=== PATIENT | male | born 1965 | race Caucasian/White ===

== ENCOUNTER 2017-03-14 00:19 | Observation (INO) | payer SELFPAY ==
[~2017-03-14] VITALS: Ht 170.2 cm; Wt 115.0 kg
[2017-03-14] VITALS (10 sets, daily range): BP systolic 126–185; BP diastolic 72–111; PULSE 55–70; RESP 14–22; TEMP 96.9–98.7; O2SAT 98–100
[~2017-03-14 00:19] MED LIST: ALBU6.7H INH; MEDR4PAK3 PO; PHEN12.5 PO; SULF-154 PO; Z.0.NO CURRENT MEDS
[2017-03-14] MEDS ORDERED: IOHEXOL 350 MG/ML 10 ML VIAL (for RAD DIAG) IVCONTRAST ONE (00:20)
[2017-03-14] MEDS ORDERED: NITROGLYCERIN 0.4 MG SL 25 TABS/BTL SL ONE (00:45)
[2017-03-14] MEDS ORDERED: ASPIRIN 81 MG CHEW TAB PO ONE (00:45)
[2017-03-14] MEDS ORDERED: SODIUM CHLORID 0.9% 500 ML INJ 500 ML IV ONE (00:45)
[2017-03-14] MEDS ORDERED: SODIUM CHLORIDE 0.9% FLUSH 10 ML FLUSH IVF PRN (00:45)
[2017-03-14] MEDS ORDERED: ONDANSETRON HCL 4 MG/2 ML VIAL IV ONE (00:45)
--- NOTE | 2017-03-14 01:01 | PD ---
HPI Chief Complaint: Chest Pain Time Seen by Provider: 00:24 Travel History International Travel<30 days: No Contact w/Intl Traveler<30days: No Traveled to known affect area: No History of Present Illness HPI The patient is a 51 year old male who presents to the [facility] emergency department with a history of reported chest pain that he states woke him from sound sleep at 10 PM. The patient reports that the pain also occurred Monday morning, however it resolved on its own. He reports that this time it is been persistent. He reports that he has had nausea and vomiting associated with it. He reports that he vomited 4 times. He reports that he last moved his bowels earlier this evening. He reports that he thought that this may help with his symptoms. He denies having any cough or congestion, fevers or chills. When asked to point to where the pain is the patient points to the midepigastric area and reports that it extends down into the area just above his umbilicus. He denies having any diarrhea. He reports that he has had problems with indigestion and heartburn recently. He denies any prior history of heart disease. He denies any prior history of DVT or PE. On review of systems otherwise, the patient denies having any neck pain, shortness of breath, urinary symptoms, or neurologic symptoms. [facility] Past Medical History Narrative Medical The patient's past medical history is significant for bronchitis. Respiratory: Yes (FREQUENT BRONCHITIS) Immunizations Current: No Social History Alcohol Use: Yes (RARELY) Tobacco Use: Yes (1/2 PPD) Substance Use: No Allergies-Medications (Allergen,Severity, Reaction): Coded Allergies: No Known Allergies (Verified Allergy, Unknown, 03/14/17) Reported Meds & Prescriptions Reported Meds & Active Scripts Active Reported Tums (Calcium Carbonate (Antacid)) 500 Mg Chew 500 Mg CHEW PRN Review of Systems Except as stated in HPI: all other systems reviewed are Neg General / Constitutional: No: Fever Eyes: No: Visual changes HENT: No: Headaches Cardiovascular: Positive: Chest Pain or Discomfort Respiratory: No: Shortness of Breath Gastrointestinal: Positive: Nausea, Vomiting, Abdominal Pain Genitourinary: No: Dysuria Musculoskeletal: No: Pain Skin: No Rash Neurologic: No: Weakness Psychiatric: No: Depression Endocrine: No: Polydipsia Hematologic/Lymphatic: No: Easy Bruising Physical Exam Narrative General: The patient is a well-developed well-nourished male, uncomfortable appearing on examination, holding his abdomen, laying on his right side. Head and Neck exam: Head is normocephalic atraumatic. Eyes: EOMI, pupils are equal round and reactive to light. Nose: Midline septum with pink mucous membranes Mouth: Dentition unremarkable. Moist mucus membranes. Posterior oropharynx is not erythematous. No tonsillar hypertrophy. Uvula midline. Airway patent. Neck: No palpable lymphadenopathy. No nuchal rigidity. No thyromegaly. Cardiovascular: Regular rate and rhythm without murmurs, gallops, or rubs. Lungs: Clear to auscultation bilaterally. No wheezes, rhonchi, or rales. Abdomen: Soft, tenderness on palpation of the midepigastric area and to a lesser extent the right upper quadrant of the abdomen. No other tenderness on palpation of the other quadrants of the abdomen. Negative Smith's sign. No tenderness on palpation of McBurney's point. Normal bowel sounds are audible. No guarding, rebound, or rigidity. Extremities: No clubbing, cyanosis, or edema. 2+ pulses in all 4 extremities. No calf tenderness on palpation. Back: No costovertebral angle tenderness to palpation. Neurologic Exam: Grossly nonfocal. Skin Exam: No rash noted. Intact skin that is warm and dry. Data Data Last Documented VS Vital Signs Date Time Temp Pulse Resp B/P (MAP) Pulse Ox O2 Delivery O2 Flow Rate FiO2 03/14/17 01:30 55 14 142/89 (106) 100 Room Air 03/14/17 00:20 97.8 Orders Orders Electrocardiogram (03/14/17 00:43) B-Type Natriuretic Peptide (03/14/17 00:43) Ckmb (Isoenzyme) Profile (03/14/17 00:43) Complete Blood Count With Diff (03/14/17 00:43) Comprehensive Metabolic Panel (03/14/17 00:43) D-Dimer (03/14/17 00:43) Magnesium (Mg) (03/14/17 00:43) Prothrombin Time / Inr (Pt) (03/14/17 00:43) Act Partial Throm Time (Ptt) (03/14/17 00:43) Troponin I (03/14/17 00:43) Lipase (03/14/17 00:43) Chest, Single Ap (03/14/17 00:43) Ecg Monitoring (03/14/17 00:43) Bilateral Bp Monitoring (03/14/17 00:43) Iv Access Insert/Monitor (03/14/17 00:43) Oximetry (03/14/17 00:43) Oxygen Administration (03/14/17 00:43) Aspirin Chew (Aspirin Chew) (03/14/17 00:45) Sodium Chloride 0.9% Flush (Ns Flush) (03/14/17 00:45) Nitroglycerin Sl (Nitrostat Sl) (03/14/17 00:45) Sodium Chlorid 0.9% 500 Ml Inj (Ns 500 M (03/14/17 00:45) Ondansetron Inj (Zofran Inj) (03/14/17 00:45) Pantoprazole Inj (Protonix Inj) (03/14/17 01:45) Ct Abd/Pel W Iv Contrast(Rout) (03/14/17 01:54) CKMB (03/14/17 00:40) CKMB% (03/14/17 00:40) Iohexol 350 Inj (Omnipaque 350 Inj) (03/14/17 00:20) Admit Order (Ed Use Only) (03/14/17 03:23) Diet Npo (03/14/17 Breakfast) Sodium Chlor 0.9% 1000 Ml Inj (Ns 1000 M (03/14/17 03:30) Piperacil-Tazo 3.375 Gm Premix (Zosyn 3. (03/14/17 03:30) Physician Name Changes (03/14/17 03:51) Consult Georgie Nfs (03/14/17 ) Place In Observation (03/14/17 ) Code Status (03/14/17 04:41) Vital Signs (Adult) Q4H (03/14/17 04:41) Activity Oob Ad Melanie (03/14/17 04:41) Intake + Output 06,14,22 (03/14/17 04:41) Sodium Chlor 0.9% 1000 Ml Inj (Ns 1000 M (03/14/17 04:41) Sodium Chloride 0.9% Flush (Ns Flush) (03/14/17 09:00) Sodium Chloride 0.9% Flush (Ns Flush) (03/14/17 04:45) Pantoprazole Inj (Protonix Inj) (03/14/17 09:00) Oxycodone-Acetamin 5-325 Mg (Percocet (03/14/17 04:45) Morphine Inj (Morphine Inj) (03/14/17 04:45) Scd / Morgan / Foot Pump (03/14/17 04:41) Labs Laboratory Tests Test 03/14/17 00:40 White Blood Count 18.6 TH/MM3 Red Blood Count 5.29 MIL/MM3 Hemoglobin 15.7 GM/DL Hematocrit 46.9 % Mean Corpuscular Volume 88.6 FL Mean Corpuscular Hemoglobin 29.6 PG Mean Corpuscular Hemoglobin Concent 33.4 % Red Cell Distribution Width 14.9 % Platelet Count 271 TH/MM3 Mean Platelet Volume 8.7 FL Neutrophils (%) (Auto) 58.1 % Lymphocytes (%) (Auto) 29.1 % Monocytes (%) (Auto) 9.8 % Eosinophils (%) (Auto) 2.3 % Basophils (%) (Auto) 0.7 % Neutrophils # (Auto) 10.8 TH/MM3 Lymphocytes # (Auto) 5.4 TH/MM3 Monocytes # (Auto) 1.8 TH/MM3 Eosinophils # (Auto) 0.4 TH/MM3 Basophils # (Auto) 0.1 TH/MM3 CBC Comment AUTO DIFF Differential Total Cells Counted 100 Neutrophils % (Manual) 60 % Band Neutrophils % 2 % Lymphocytes % 18 % Monocytes % 5 % Eosinophils % 2 % Basophils % 1 % Neutrophils # (Manual) 11.5 TH/MM3 Differential Comment FINAL DIFF MANUAL Atypical Lymphocytes 12 % Platelet Estimate NORMAL Platelet Morphology Comment NORMAL Red Cell Morphology Comment NORMAL Prothrombin Time 10.5 SEC Prothromb Time International Ratio 1.0 RATIO Activated Partial Thromboplast Time 23.9 SEC D-Dimer Quantitative (PE/DVT) 0.53 MG/L FEU Blood Urea Nitrogen 17 MG/DL Creatinine 1.09 MG/DL Random Glucose 117 MG/DL Total Protein 7.8 GM/DL Albumin 3.9 GM/DL Calcium Level 8.9 MG/DL Magnesium Level 2.1 MG/DL Alkaline Phosphatase 63 U/L Aspartate Amino Transf (AST/SGOT) 18 U/L Alanine Aminotransferase (ALT/SGPT) 30 U/L Total Bilirubin 0.2 MG/DL Sodium Level 141 MEQ/L Potassium Level 4.0 MEQ/L Chloride Level 106 MEQ/L Carbon Dioxide Level 26.5 MEQ/L Anion Gap 9 MEQ/L Estimat Glomerular Filtration Rate 72 ML/MIN Total Creatine Kinase 150 U/L Creatine Kinase MB 1.3 NG/ML Troponin I LESS THAN 0.02 NG/ML B-Type Natriuretic Peptide 3 PG/ML Lipase 151 U/L MDM Medical Decision Making Medical Screen Exam Complete: Yes Emergency Medical Condition: Yes Medical Record Reviewed: Yes Interpretation(s) Last Impressions Abdomen/Pelvis CT 03/14/17 0154 Signed Impressions: Service Date/Time: Tuesday, March 14, 2017 02:30 - CONCLUSION: 1. Thickening of the gallbladder wall concerning for possible cholecystitis. This should be correlated with clinical symptoms. Biliary ductal dilatation is not seen. 2. Scattered colonic diverticula. Abhi Garcia MD Chest X-Ray 03/14/17 0043 Signed Impressions: Service Date/Time: Tuesday, March 14, 2017 01:09 - CONCLUSION: No acute disease. Abhi Garcia MD Differential Diagnosis Biliary colic, versus acute cholecystitis, versus acute coronary syndrome, versus pancreatitis Narrative Course During the course of the patients emergency department visit, the patients history, examination, and differential diagnosis were reviewed with the patient. The patient was placed on a media monitor with oximetry and frequent blood pressure monitoring. The patient had IV access obtained and blood work sent for analysis. The patient was initially provided aspirin 324 mg by mouth 1, nitroglycerin sublingual times one without any improvement in the pain, normal saline a 500 mL bolus. The patient was given Protonix 40 mg IV. The patients laboratory studies were reviewed and remarkable for a white count of 18.6, hemoglobin 15.7, platelets 271 with 60 neutrophils, 2 bands, 18 lymphocytes. CMP is remarkable for glucose of 117, cardiac enzymes within normal limits, BNP 3, lipase 151, PT 10.5, PTT 23.9. Radiology studies were reviewed and remarkable for a chest x-ray that reveals no acute cardiopulmonary disease, CT scan of the abdomen and pelvis reveals thickening of the gallbladder wall concerning for possible cholecystitis. The patient was given Zosyn 3.375 g IV. Initially, I spoke to Dr. Gonzalez regarding this patient's case, she recommended that I discuss the patient's case with the general surgeon on-call as he may accept the patient for admission. I then spoke to Dr. Posada regarding the patient's case and he did agree to admit the patient. The patients results were discussed with the patient, including the plan of care. I explained that further testing and/ or monitoring is indicated based on the patients history, examination, and/ or laboratory findings. Therefore, I recommended admission for additional evaluation. The patient expressed understanding and was agreeable with this plan. The patient was admitted to the hospital in stable condition and sent to a bed under the care of the general surgeon's service. Physician Communication Physician Communication See above and ED course for physician communication Diagnosis Primary Impression: Acute cholecystitis Admitting Information Admitting Physician Requests: Admit Gina Archibald MD Mar 14, 2017 01:01
[2017-03-14 01:19] LABS: AUTOMATED NEUTROPHIL # 10.8 TH/MM3 (1.8-7.7); BASOPHIL # 0.1 TH/MM3 (0-0.2); BASOPHIL % 0.7 % (0.0-2.0); EOSINOPHIL # 0.4 TH/MM3 (0-0.4); EOSINOPHIL % 2.3 % (0.0-4.0); HEMATOCRIT 46.9 % (39.0-51.0); HEMOGLOBIN 15.7 GM/DL (13.0-17.0); LYMPH % 29.1 % (9.0-44.0); LYMPHOCYTE # 5.4 TH/MM3 (1.0-4.8); MEAN CELL VOLUME 88.6 FL (80.0-100.0); MEAN CORPUSCULAR HEMOGLOBIN 29.6 PG (27.0-34.0); MEAN CORPUSCULAR HGB CONC 33.4 % (32.0-36.0); MEAN PLATELET VOLUME 8.7 FL (7.0-11.0); MONO % 9.8 % (0.0-8.0); MONOCYTE # 1.8 TH/MM3 (0-0.9); NEUT % 58.1 % (16.0-70.0); PLATELET COUNT 271 TH/MM3 (150-450); RED BLOOD COUNT 5.29 MIL/MM3 (4.50-5.90); RED CELL DISTRIBUTION WIDTH 14.9 % (11.6-17.2); WHITE BLOOD COUNT 18.6 TH/MM3 (4.0-11.0)
--- NOTE | 2017-03-14 01:28 | RADRPT ---
EXAM DATE/TIME: 03/14/2017 01:09 [facility] COMPARISON: CHEST SINGLE AP, June 24, 2011, 15:33. INDICATIONS : Chest pain. MEDICAL HISTORY : None. SURGICAL HISTORY : None. ENCOUNTER: Initial ACUITY: 1 day PAIN SCORE: 6/10 LOCATION: Bilateral lower chest FINDINGS: A single view of the chest demonstrates the lungs to be symmetrically aerated without evidence of mas s, infiltrate or effusion. The cardiomediastinal contours are unremarkable. Osseous structures are intact. CONCLUSION: No acute disease. Abhi Garcia MD on March 14, 2017 at 1:26 Board Certified Radiologist. This report was verified electronically.
[2017-03-14 01:45] LABS: PROTHROMBIN TIME - PATIENT 10.5 SEC (9.8-11.6)
[2017-03-14] MEDS ORDERED: PANTOPRAZOLE SODIUM 40 MG VIAL IV PUSH ONE (01:45)
[2017-03-14 01:55] LABS: ALKALINE PHOSPHATASE 63 U/L (45-117); TOTAL BILIRUBIN ADULT 0.2 MG/DL (0.2-1.0); TOTAL PROTEIN 7.8 GM/DL (6.4-8.2); TROPONIN I LESS THAN 0.02 NG/ML (0.02-0.05)
[2017-03-14 01:57] LABS: ALBUMIN 3.9 GM/DL (3.4-5.0); ALT (GPT) 30 U/L (12-78); AST (GOT) 18 U/L (15-37); BICARBONATE 26.5 MEQ/L (21.0-32.0); BLOOD UREA NITROGEN 17 MG/DL (7-18); CALCIUM 8.9 MG/DL (8.5-10.1); CHLORIDE 106 MEQ/L (98-107); CREATININE 1.09 MG/DL (0.60-1.30); GLOMERULAR FILTRATION RATE 72 ML/MIN (>89); GLUCOSE,RANDOM 117 MG/DL (74-106); LIPASE 151 U/L (73-393); MAGNESIUM 2.1 MG/DL (1.5-2.5); SODIUM (NA) 141 MEQ/L (136-145)
[2017-03-14] MEDS ORDERED: TUMS500C CHEW (01:57)
[2017-03-14 02:01] LABS: D-DIMER 0.53 MG/L FEU (0.00-0.50)
[2017-03-14 02:31] LABS: ATYPICAL LYMPHOCYTES 12 % (0-0); BANDS 2 % (0-6); BASOPHILS 1 % (0-2); LYMPHOCYTES 18 % (9-44); MONOCYTES 5 % (0-8); NEUTROPHIL # MANUAL DIFF 11.5 TH/MM3 (1.8-7.7); POLYS (SEG NEUTROPHILS) 60 % (16-70)
--- NOTE | 2017-03-14 03:06 | RADRPT ---
EXAM DATE/TIME: 03/14/2017 02:30 [facility] COMPARISON: No previous studies available for comparison. INDICATIONS : Epigastric pain aeith nausea and vomiting. IV CONTRAST: 95 cc Omnipaque 350 (iohexol) IV ORAL CONTRAST: No oral contrast ingested. RADIATION DOSE: 25.60 CTDIvol (mGy) ; Patient body habitus MEDICAL HISTORY : None SURGICAL HISTORY : None. ENCOUNTER: Initial ACUITY: 1 day PAIN SCALE: 10/10 LOCATION: epigastric TECHNIQUE: Volumetric scanning of the abdomen and pelvis was performed. Using automated exposure control and ad justment of the mA and/or kV according to patient size, radiation dose was kept as low as reasonably achievable to obtain optimal diagnostic quality images. DICOM format image data is available electro nically for review and comparison. FINDINGS: LOWER LUNGS: The visualized lower lungs are clear. LIVER: Homogeneous density without lesion. There is no dilation of the biliary tree. The gallbladder is thi ckened and somewhat ill-defined. Calcified gallstones are not seen. SPLEEN: Normal size without lesion. PANCREAS: Within normal limits. KIDNEYS: Normal in size and shape. There is no mass, stone or hydronephrosis. ADRENAL GLANDS: Within normal limits. VASCULAR: There is no aortic aneurysm. BOWEL/MESENTERY: There are scattered colonic diverticula. ABDOMINAL WALL: Within normal limits. RETROPERITONEUM: There is no lymphadenopathy. BLADDER: No wall thickening or mass. REPRODUCTIVE: Within normal limits. INGUINAL: There is no lymphadenopathy or hernia. MUSCULOSKELETAL: Within normal limits for patient age. CONCLUSION: 1. Thickening of the gallbladder wall concerning for possible cholecystitis. This should be correlate d with clinical symptoms. Biliary ductal dilatation is not seen. 2. Scattered colonic diverticula. Abhi Garcia MD on March 14, 2017 at 3:00 Board Certified Radiologist. This report was verified electronically.
[2017-03-14] MEDS ORDERED: SODIUM CHLOR 0.9% 1000 ML INJ 1,000 ML IV ONE (03:30)
[2017-03-14] MEDS ORDERED: PIPERACIL-TAZO 3.375 GM PREMIX 50 ML IV ONE (03:30)
[2017-03-14] MEDS ORDERED: SODIUM CHLORIDE 0.9% FLUSH 10 ML FLUSH IV FLUSH PRN (04:45)
[2017-03-14] MEDS: SODIUM CHLOR 0.9% 1000 ML INJ 1,000 ML IV SCH ×2 (05:21→16:00)
[2017-03-14] MEDS ORDERED: ACETAMINOPHEN 1000 MG/100 ML 100 ML IV ONE (07:14)
--- NOTE | 2017-03-14 08:11 | HHI.PR ---
Immediate Post Op Note Procedure Date: Mar 14, 2017 Pre Op Diagnosis: acute cholecystitis, with cholelithiasis Post Op Diagnosis: same Surgeon: Alex Posada MD Kiln Car Repairer(s): see or sheet Procedure: lap felicitas Findings: distended gallbladder, inflamed, multiple large stones Complications: none Specimen(s) removed: gallbladder Estimated blood loss: 5cc Anesthesia: General Drains: None Patient to: PACU Patient Condition: Good Alex Posada MD Mar 14, 2017 08:11
[2017-03-14] MEDS ORDERED: SODIUM CHLORID 0.9% 500 ML IV PRN (08:15)
[2017-03-14] MEDS ORDERED: POVIDONE IODINE 5% (ANTISEPSIS KIT) 4 APPLICATIONS EACH NARE PRN (08:15)
[2017-03-14] MEDS ORDERED: LACTATED RINGER'S 1000 ML IV PRN (08:15)
[2017-03-14] MEDS ORDERED: METOPROLOL TARTRATE 25 MG TAB PO PRN (08:15)
[2017-03-14] MEDS ORDERED: CHLORHEXIDINE GLUCONATE 2 % 1 PACK (2 CLOTHS) TOPICAL PRN (08:15)
[2017-03-14] MEDS ORDERED: DO NOT ADM ANY ANTICOAGULANT DRUGS PRN (09:36)
[2017-03-14] MEDS: PANTOPRAZOLE SODIUM 40 MG VIAL IV PUSH SCH (10:02)
[2017-03-14] MEDS ORDERED: *morphine SULFATE 4 MG/ML PERIprocedure ONLY ONE ×3 (10:12→10:44)
[2017-03-14] MEDS ORDERED: GLYCOPYRROLATE 1 MG/5 ML SYRINGE IV PUSH ONE (12:00)
[2017-03-14] MEDS ORDERED: ONDANSETRON HCL 4 MG/2 ML VIAL IV PUSH ONE (12:00)
[2017-03-14] MEDS ORDERED: PHENYLEPH/NS 1000 MCG/10 ML SYR IV ONE (12:00)
[2017-03-14] MEDS ORDERED: NEOSTIGMINE 5 MG/5 ML SYRINGE IV PUSH ONE (12:00)
[2017-03-14] MEDS ORDERED: PROPOFOL 200 MG/20 ML AMP IV ONE (12:00)
[2017-03-14] MEDS ORDERED: ROCURONIUM INJ 50 MG/5 ML SYRINGE IV PUSH ONE (12:00)
[2017-03-14] MEDS ORDERED: LIDOCAINE HCL 1% PF 5 ML SYRINGE OTHER ONE (12:00)
[2017-03-14] MEDS: PIPERACIL-TAZO 3.375 GM PREMIX 50 ML IV SCH ×2 (12:32→21:17)
--- NOTE | 2017-03-14 14:39 | EKG ---
Date Performed: 03/14/2017 Time Performed: 00:27:08 PTAGE: 51 years EKG: Sinus rhythm INCOMPLETE RIGHT BUNDLE BRANCH BLOCK BORDERLINE ECG Compared to PREVIOUS TRACING sinus tachycardia has resolved PREVIOUS TRACIN06/24/11 DOCTOR: Lorie Magana Interpretating Date/Time 03/14/2017 14:38:57
--- NOTE | 2017-03-14 14:43 | MH ---
cc: GERRI RODRÍGUEZ MD DATE OF ADMISSION: 03/14/2017 CHIEF COMPLAINT Abdominal pain. HISTORY OF PRESENT ILLNESS The patient is a 51-year-old male who presents with acute onset of abdominal pain. He states the pain started on 10:00 p.m. last night, woke him up from his sleep and it continued to get worse. The patient notes pain was located right upper quadrant was sharp, worse with movement, better with lying still and got progressively continuously worse. He does note associated nausea, vomiting x4. He is having normal bowel movements. He denies any fevers or chills or diarrhea or constipation. He did have a similar episode but much less on Monday but resolved on its own. He came to emergency department for further evaluation including CT scan showing thickened, dilated, gallbladder wall with some of gallstones. PAST MEDICAL HISTORY Bronchitis History of deep venous thrombosis. PAST SURGICAL HISTORY The patient has no surgery history. SOCIAL HISTORY: Occasional ethyl alcohol. Positive smoking half-pack per day denies IVDA. ALLERGIES NO KNOWN DRUG ALLERGIES. MEDICATIONS See EMR. FAMILY HISTORY Uncle with diabetes. Grandmother with diabetes. Mother, father healthy. REVIEW OF SYSTEMS GENERAL: Denies fevers, chills. HEAD, EYES, EARS, NOSE, AND THROAT: Denies eye pain, ear pain. NECK: Denies swelling or pain. LUNGS: Denies cough or wheeze. HEART: Denies palpitations, chest pain. ABDOMEN: Complained of nausea, vomiting, abdominal pain. GENITOURINARY: Denies dysuria, hematuria. ENDOCRINE: Denies polyuria, polydipsia. PSYCHIATRIC: Psych denies depression or mood change. PHYSICAL EXAMINATION IN GENERAL: The patient no acute distress. VITAL SIGNS: Temperature 98.4, pulse 72, respirations 14, blood pressure 120/69, saturation 97%. HEAD, EYES, EARS, NOSE, AND THROAT: Pupils equal round reactive. No scleral icterus. NECK: Supple. Trachea midline. LUNGS: Clear to auscultation bilateral expansion. HEART: S1-S2 regular. ABDOMEN: Soft, positive to palpation right upper quadrant and epigastric area. No rebound. GENITOURINARY: Within normal limits. EXTREMITIES: Warm, well-perfused. BACK: Nontender. Normal curvature. INTEGUMENT: No obvious skin masses or lesions. PSYCHIATRIC: Appropriate mood, appropriate insight. NEUROLOGIC: Lui Coma Scale 15, 5/5 movement all extremities. LABORATORY AND DIAGNOSTIC DATA WBC 10.6, hemoglobin 15.7, hematocrit 46.9, platelets 2701. Sodium 141, potassium four, BUN is 17, creatinine one, AST 80, ALT 30, alkaline phos 63, lipase 151 T bili 0.2, INR one. CT reviewed by myself showing thickened gallbladder wall with several large gallstones. ASSESSMENT The patient is 51-year-old male acute onset of right upper quadrant abdominal pain. CT consistent with acute cholecystitis, symptomatic cholelithiasis. PLAN A full clinical radiologic laboratory workup the patient with above-named issues. He will go to the OR for a laparoscopic appendectomy. Discussed with the patient in detail. The patient understands and agrees. The patient will need IV fluids, IV antibiotics pain control. The patient will be n.p.o. we will start clear liquids postoperatively. MD IMMANUEL Gonzalez/missy /10:32 AM /11:17 AM
[2017-03-14] MEDS: oxyCODONE/ACETAMINOPHEN 5 MG/325 MG TAB PO PRN (18:34)
[2017-03-14] MEDS: SODIUM CHLORIDE 0.9% FLUSH 10 ML FLUSH IV FLUSH SCH ×2 (21:16→21:17)
--- NOTE | 2017-03-14 21:25 | MP ---
cc: GERRI POSADA MD DATE OF SURGERY 03/14/17 PREOPERATIVE DIAGNOSIS Acute cholecystitis with cholelithiasis. POSTOPERATIVE DIAGNOSIS Acute cholecystitis with cholelithiasis PROCEDURE Laparoscopic cholecystectomy SURGEON Dr. Trena Posada WEB MARKETING SPECIALIST See OR sheet ANESTHESIA GETA. IV FLUIDS See anesthesia sheet ESTIMATED BLOOD LOSS 10 mL. DRAINS None COMPLICATIONS None. WOUND CLASSIFICATION Clean contaminated. SPECIMENS Gallbladder FINDINGS Distended inflamed acute bleeding gallbladder with adhesions and large gallstones. INDICATION The patient is a middle aged male who presented with acute onset of right upper quadrant pain. The pain started at 10:00 p.m. that night and progressed and continued to get worse. The patient came to the emergency department for further evaluation including CT scan showing thickened gallbladder wall. The patient was noted to have multiple gallstones as well and a leukocytosis. Therefore, decision was made for laparoscopic cholecystectomy. Discussed with patient in detail. He understood and agreed. PROCEDURE IN DETAIL The patient was taken to the operating suite, placed in supine position. He was prepped and draped in usual sterile fashion after induction of general endotracheal anesthesia Brief time-out done stating correct patient, procedure and surgical site. All were agreement with this. Attention was first directed to the umbilicus where local anesthetic injected, stab mehul incision done. Veress needle placed and intra-abdominal placement confirmed with saline drop test. Abdomen insufflated to 15 mm pneumoperitoneum. The Veress needle exchanged for the 5 mm port and scope. On cursory inspection, no evidence of injury. Three other trocars placed, one 12 mm epigastric followed by two 5 mm right subcostal ports. The patient placed in reverse Trendelenburg and airplaned to the left. Identification of the gallbladder. Noted to be several omental adhesions to the gallbladder. Gallbladder was very acutely inflamed and indurated. Medial decompression was done in order to appropriately grasp the gallbladder. About 115 mL of bile were removed. The gallbladder was retracted cephalad. Again adhesions taken down through the infundibulum. This was done with a hook Bovie cautery and [place] cautery as well. The out in the usual fashion. Cystic duct was dissected and three clips placed proximal, one distal and scissor was used to clip the cystic duct. Cystic artery was also clipped between two clips proximal, one distal. A to transect this was well. The hook electro Bovie cautery was used to remove the gallbladder from the gallbladder fossa. Small bleeding was clipped at the gallbladder fossa. Gallbladder was completely removed and placed in an EndoCatch bag. It was removed from the epigastric 12 port with again EndoCatch bag and then attention directed back to right upper quadrant gallbladder. Electro Bovie cautery was used for hemostasis. Small piece of Surgicel was placed in the gallbladder fossa. Again noted no biliary leaking and hemostasis. Suction irrigation used until the effluent was clear. Next, the patient was placed flat and the pneumoperitoneum was removed. The trocars were also removed. The epigastric fascia was closed with a [id number] 0 Vicryl, subcuticular sutures and 4-0 Monocryl done to the skin incisions. Sterile dressings was placed including Mastisol, Steri-Strips. The patient tolerated procedure well. There were no intraoperative complications. All lap and instrument counts were correct at the end of the procedure. The patient was extubated, taken stable to PACU. MD IMMANUEL Gonzalez/ /6:15 PM /9:03 PM
[2017-03-15] VITALS: BP 129/86; PULSE 80; RESP 20; TEMP 97.5; O2SAT 97
[2017-03-15] MEDS: MORPHINE SULFATE 4 MG/ML INJ IV PUSH PRN ×2 (00:21→07:06)
[2017-03-15] MEDS: SODIUM CHLOR 0.9% 1000 ML INJ 1,000 ML IV SCH (00:23)
[2017-03-15] MEDS: oxyCODONE/ACETAMINOPHEN 5 MG/325 MG TAB PO PRN ×3 (03:06→15:22)
[2017-03-15] MEDS: PIPERACIL-TAZO 3.375 GM PREMIX 50 ML IV SCH (04:26)
[2017-03-15 08:00] VITALS: BP 122/74; PULSE 58; RESP 18; TEMP 96.3; O2SAT 94
[2017-03-15] MEDS ORDERED: ENOXAPARIN SODIUM 40 MG/0.4 ML SYRINGE SQ SCH (09:00)
[2017-03-15] MEDS: SODIUM CHLORIDE 0.9% FLUSH 10 ML FLUSH IV FLUSH SCH (09:08)
[2017-03-15] MEDS: PANTOPRAZOLE SODIUM 40 MG VIAL IV PUSH SCH (09:08)
[2017-03-15 11:07] VITALS: O2SAT 94
--- NOTE | 2017-03-15 11:45 | HHI.PR ---
Subjective Subjective Notes Resting in bed Mild post op pain Objective Vitals/I&O Vital Signs Date Time Temp Pulse Resp B/P (MAP) Pulse Ox O2 Delivery O2 Flow Rate FiO2 03/15/17 11:07 94 Nasal Cannula 2.00 03/15/17 08:00 96.3 58 18 122/74 (90) Cardiovascular: Regular Lungs: Clear Abdomen: Other (obese abdomen; lap sites c/d/i ) Extremities: No edema A/P Assessment and Plan 51 year old POD1 lap felicitas -DC IVF -Advance to regular diet -OOB as tolerated -Renetta Antunez Mar 15, 2017 11:45
[2017-03-15 12:00] VITALS: BP 133/83; PULSE 63; RESP 17; TEMP 97.9; O2SAT 98
[2017-03-15] MEDS ORDERED: OXYC1TAB63 PO (14:37)
--- NOTE | 2017-03-15 15:46 | HHI.DS ---
Discharge Summary Admission Date Mar 14, 2017 at 04:43 Discharge Date: Mar 15, 2017 Admitting Diagnosis Acute cholecystitis Brief History 51 year old male POD1 lap felicitas CBC/BMP: 03/14/17 0040 03/14/17 0040 Significant Findings Laboratory Tests Test 03/14/17 00:40 White Blood Count 18.6 TH/MM3 (4.0-11.0) Monocytes (%) (Auto) 9.8 % (0.0-8.0) Neutrophils # (Auto) 10.8 TH/MM3 (1.8-7.7) Lymphocytes # (Auto) 5.4 TH/MM3 (1.0-4.8) Monocytes # (Auto) 1.8 TH/MM3 (0-0.9) Neutrophils # (Manual) 11.5 TH/MM3 (1.8-7.7) Atypical Lymphocytes 12 % (0-0) Activated Partial Thromboplast Time 23.9 SEC (24.3-30.1) D-Dimer Quantitative (PE/DVT) 0.53 MG/L FEU (0.00-0.50) Random Glucose 117 MG/DL (74-106) Estimat Glomerular Filtration Rate 72 ML/MIN (>89) Troponin I LESS THAN 0.02 NG/ML PE at Discharge Resting in bed Cardio: RRR Resp: CTAB Abd: obese; lap sites c/d/i; post op tenderness Hospital Course This is a 51 year old male POD1 lap felicitas. Patient's diet was advanced as tolerated. His pain was controlled using oral pain medications. He will follow up next week in the office with Dr. Posada. Pt Condition on Discharge: Good Discharge Disposition: Discharge Home Discharge Instructions DIET: Follow Instructions for: As Tolerated, No Restrictions Activities you can perform: See Additionl Instruction Other Activity Instructions: Okay to shower; pat incisions dry No baths Avoid heavy pushing pulling or lifting Renetta Guillory Mar 15, 2017 15:46
== END 2017-03-15 15:57 | disposition home or self-care (01) ==
LOC: NEPC 00:19 → UNDOADMIN 03:24 → NEDA 03:24 → INTOOBSV 04:43 → NEDA 04:43 → N07B 13:50
PROVIDERS: ADMIT Surgery; ATTEND Surgery
DX: K80.00 Calculus of gallbladder with acute cholecystitis without obstruction (principal); K82.8 Other specified diseases of gallbladder; K57.30 Diverticulosis of large intestine without perforation or abscess without bleeding; R94.31 Abnormal electrocardiogram [ECG] [EKG]; F17.210 Nicotine dependence, cigarettes, uncomplicated; Z86.718 Personal history of other venous thrombosis and embolism
CPT/HCPCS: 00790; 47562; 71045; 74177; 80053; 82550; 82552; 83690; 83735; 83880; 84484; 85007; 85027; 85379; 85610; 85730; 88304; 93005; 96361; 96365; 96372; 96375; 96376; 99285; C9113; G0378; J0131; J1650; J2270; J2370; J2405; J2543; J2710; J3010; J7030; J7040; Q9967